=== PATIENT | female | born 1965 | race Caucasian/White ===

== ENCOUNTER 2021-09-04 13:05 | Outpatient (CLI) | payer BC, SELFPAY ==
--- NOTE | 2021-09-04 13:30 | MM_ITS ---
WS: [id number] BILATERAL 3D TOMOSYNTHESIS DIGITAL SCREENING MAMMOGRAPHY WITH CAD CLINICAL INFORMATION: SCREENING HISTORY: Screening mammogram. No current complaints. History of fibrocystic breasts. COMPARISON: None. TECHNIQUE: Bilateral CC and MLO views. FINDINGS: Scattered fibroglandular densities bilaterally. No suspicious focal mass, asymmetry, calcifications, or architectural distortion. No evidence of malignancy. MM/[place] [id number] IMPRESSION: BI-RADS: 1-Negative FOLLOW UP: 1 Year Follow-up Recommend return to annual screening mammography.
--- NOTE | 2021-09-04 13:32 | CT_ITS ---
WS: [id number] LDCT LUNG CANCER SCREENING TECHNIQUE: Noncontrast CT of the chest with coronal and sagittal reformatted images. CLINICAL INFORMATION: CIGARETTE NICOTINE DEPENDENCE W/O COMPLICATION COMPARISON: None. DLP: 62.91 mGy.cm DIvol: Mean CTDIvol: 1.60 (mGy) All CT scans at [facility] use at least one of these dose optimization techniques: automat ed exposure control; mA and/or kV adjustment per patient size (includes targeted exams where dose is matched to clinical indication); or iterative reconstruction. FINDINGS: Both lungs are well aerated. Mild thoracic curve. Mild thoracic kyphosis. No suspicious pul monary parenchymal opacities. No focal pneumonia or pleural fluid. Normal caliber thoracic aorta. No mediastinal or hilar lymphadenopathy. No axillary lymphadenopathy. Small esophageal hiatal hernia. Adrenal glands are normal. CT/CT lung screening [id number] IMPRESSION: LUNG-RADS: 1-Negative FOLLOW UP: 12 Month: Continue annual screening with LDCT
== END 2021-09-04 13:06 | disposition home or self-care (01) ==
PROVIDERS: PCP Nurse Practitioner Family; Visit Provider Nurse Practitioner Family
DX: F17.210 Nicotine dependence, cigarettes, uncomplicated (principal); Z12.31 Encounter for screening mammogram for malignant neoplasm of breast
CPT/HCPCS: 71271; 77063; 77067

== ENCOUNTER → 2022-11-18 10:35 | Outpatient (BNVA) | payer BC, SELFPAY | PROVIDERS: Visit Provider Family Medicine | DX: Z12.11 Encounter for screening for malignant neoplasm of colon (principal); Z12.12 Encounter for screening for malignant neoplasm of rectum; M35.00 Sjogren syndrome, unspecified; E66.9 Obesity, unspecified; F41.9 Anxiety disorder, unspecified; F90.9 Attention-deficit hyperactivity disorder, unspecified type; Z12.2 Encounter for screening for malignant neoplasm of respiratory organs; F17.200 Nicotine dependence, unspecified, uncomplicated; Z71.6 Tobacco abuse counseling | CPT/HCPCS: 80053; 80061; 83036; 84439; 84443; 85025 ==

== ENCOUNTER 2022-12-01 12:32 | Outpatient (CLI) | payer BC, SELFPAY ==
--- NOTE | 2022-12-01 13:30 | CT_ITS ---
WS: [id number] LDCT LUNG CANCER SCREENING TECHNIQUE: Noncontrast CT of the chest with coronal and sagittal reformatted images. CLINICAL INFORMATION: LDCT scan for screening COMPARISON: 09/04/2021 DLP: 80.51 mGy.cm DIvol: Mean CTDIvol: 1.70 (mGy) All CT scans at [facility] use at least one of these dose optimization techniques: automat ed exposure control; mA and/or kV adjustment per patient size (includes targeted exams where dose is matched to clinical indication); or iterative reconstruction. FINDINGS: Lungs are well aerated. No acute pulmonary infiltrates. No suspicious pulmonary parenchymal opacities. Normal caliber thoracic aorta. No mediastinal or hilar lymphadenopathy. No axillary lymphadenopathy. Adrenal glands are normal. Small esophageal hiatal hernia. Tiny nonobstructing LEFT renal parenchymal calculus. IMPRESSION: CT/CT lung screening [id number] LUNG-RADS: 1-Negative FOLLOW UP: 12 Month: Continue annual screening with LDCT
== END 2022-12-01 12:33 | disposition home or self-care (01) ==
PROVIDERS: PCP Family Medicine; Visit Provider Family Medicine
DX: Z12.2 Encounter for screening for malignant neoplasm of respiratory organs (principal); F17.219 Nicotine dependence, cigarettes, with unspecified nicotine-induced disorders
CPT/HCPCS: 71271

== ENCOUNTER 2022-12-19 08:45 | Day surgery (SDC) | payer BC, SELFPAY ==
[2022-12-19] MEDS: sodium chloride 0.9% 1,000 ML 30 ML IV (09:57)
[2022-12-19 09:59] VITALS: BP 117/71; PULSE 81; RESP 16; TEMP 35.8; O2SAT 93
--- NOTE | 2022-12-19 10:35 | P.ANESASSM_ITS ---
Pre-Anesthetic Assessment Height/Weight: Height 1.68 m Temp Pulse Resp BP Pulse Ox O2 Del Method 96.5 F L 81 16 117/71 93 Room Air 12/19/22 09:59 12/19/22 09:59 12/19/22 09:59 12/19/22 09:59 12/19/22 09:59 12/19/22 09:59 Preop Diagnosis: family history of colon polyps Operation Date: 12/19/22 10:45 Proposed Procedures p Colonoscopy 79678,Z12.11,Z80.0(Not Applicable) - Robby Hill DO Familial anesthetic complications: none Was Beta Guzman taken within 24 hours: N/A Was Clonidine taken within 24 hours: N/A Last intake: Intake Last Liquid Date 12/18/22 Last Liquid Time 22:00 Last Solid Date 12/17/22 Last Solid Time 19:00 Social Tobacco and No alcohol 0.5 pack(s) per day 40 pack years Exam alert, oriented x 3, clear to auscultation bilaterally and regular rate & rhythm Airway Submandibular: within normal limits Cervical ROM: within normal limits Mallampati: Class II Dentition: full Pulmonary None reported CV/HEM None reported None reported Hepatic None reported GI Gastroesophageal Reflux Disease Metabolic Hyperlipidemia [facility] [place] None reported Neuropsych Anxiety Anesthetic Plan ASA status: 2 Anesthesia: MAC Risk of > 500 ml blood loss (7ml/kg in children): No Medications/Allergies Home Medications Medication Instructions Recorded Confirmed Last Taken Type aripiprazole 10 mg tablet (Abilify) 10 mg PO DAILY #90 tabs 11/18/22 12/19/22 12/18/22 Rx clonazepam 1 mg tablet 1 mg PO DAILY #30 tabs 11/18/22 12/19/22 12/18/22 Rx dextroamphetamine-amphetamine ER 30 mg PO DAILY 30 days #30 caps 11/18/22 12/19/22 12/18/22 Rx 30 mg 24hr capsule,extend release (Adderall XR) venlafaxine 150 mg 150 mg PO DAILY #90 caps 11/18/22 12/19/22 12/18/22 Rx capsule,extended release 24 hr Allergies Allergy/AdvReac Type Severity Reaction Status Date / Time Sulfa (Sulfonamide Allergy Mild ALGY-Rash Verified 12/18/22 10:05 Antibiotics) Current Medications Generic Name Dose Route Start Last Admin Trade Name Freq PRN Reason Stop Dose Admin Sodium Chloride 1,000 mls @ 30 mls/hr 12/19/22 09:00 12/19/22 09:57 Sodium Chloride 0.9% IV 12/20/22 08:59 30 mls/hr .Q24H BERNARDA Administration PFSH Anesthesia Medical History (Updated 11/25/22 @ 10:02 by Robby Hill DO) ADHD Anxiety Family history of colon cancer Obesity (BMI 30.0-34.9) Sjogrens syndrome Tobacco use disorder Surgical History S/P hysterectomy Family History Father Brain aneurysm Mother CHF (congestive heart failure) Grandfather Myocardial infarction Cancer Maternal-colon Grandmother Heart aneurysm Family/Other Heart aneurysm Stroke Uncle: heart aneurysm Aunt: stroke Cancer Maternal uncle-lung Other Hyperlipidemia Thyroid disease Denies family history of Diabetes CAD (coronary artery disease) Clotting disorder Dementia Psychiatric illness Chronic kidney disease (CKD) Anesthesia complication Bleeding disorder Lung disease Hypertension Social History Smoking and tobacco/nicotine status: current every day tobacco/nicotine user (0.5 ppd X 30 years) cigarettes Packs smoked per day: 0.5 Years cigarettes smoked: 30 Alcohol intake: current Alcohol intake frequency: holidays/special occasions only Substance/Drug Use: never Lives independently: Yes Marital status: Number of children: 0 Current occupational status: employed Current occupation: [employer] Vivian/Religious: Hoahaoism Special vivian needs: No Agree to transfusion: Yes Data Anesthesia Cardiac Studies: No Data to Display
--- NOTE | 2022-12-19 11:19 | W.PM.OPSUD ---
Surgery/Procedure H&P Update DATE OF PROCEDURE: December 19, 2022 DATE H&P PERFORMED: 11/25/22 H&P UPDATE INFORMATION: I have reviewed H&P completed within last 30 days, I have examined patient prior to procedure and No changes to prior documentation PREOP DIAGNOSIS: family history of colon polyps PLANNED PROCEDURE: Operation Date: 12/19/22 10:45 Proposed Procedures p Colonoscopy 50801,Z12.11,Z80.0(Not Applicable) - Robby Hill,
[2022-12-19 11:57] VITALS: BP 103/62; PULSE 80; RESP 20; TEMP 36.3; O2SAT 95
--- NOTE | 2022-12-19 13:53 | ANE.PACU2 ---
Inpatient post-anesthesia follow up: Airway intact: Yes Vital signs: Temperature 97.3 F Pulse Rate 80 Respiratory Rate 20 Blood Pressure 103/62 Pulse Oximetry 95 Oxygen Delivery Me thod Nasal Cannula Oxygen Flow Rate 3 Fraction of Inspir ed Oxygen Hydration adequate: Yes Nausea and vomiting: No Pain level: 2 Mental status: Baseline
== END 2022-12-19 12:15 | disposition home or self-care (01) ==
PROVIDERS: PCP Family Medicine; Visit Provider Surgery
PROC: 0DJD8ZZ Inspection of Lower Intestinal Tract, Via Natural or Artificial Opening Endoscopic (ICD-10-PCS; CPT 45378; principal; 2022-12-19 10:45)
DX: Z12.11 Encounter for screening for malignant neoplasm of colon (principal); Z80.0 Family history of malignant neoplasm of digestive organs; D12.3 Benign neoplasm of transverse colon; F17.210 Nicotine dependence, cigarettes, uncomplicated
CPT/HCPCS: 45385; 88305; J2704; J7030

== ENCOUNTER 2024-07-29 12:56 | Outpatient (CLI) | payer BC, SELFPAY ==
--- NOTE | 2024-07-29 13:45 | CT_ITS ---
WS: [id number] LDCT LUNG CANCER SCREENING TECHNIQUE: Noncontrast CT of the chest with coronal and sagittal reformatted images. CLINICAL INFORMATION: screening COMPARISON: 2022 DLP: 71.59 mGy.cm DIvol: Mean CTDIvol: 1.50 (mGy) All CT scans at [facility] use at least one of these dose optimization techniques: automated exposure control; mA and/or kV adjustment per patient size (includes targeted exams where dose is matched to clinical indication); or iterative reconstruction. FINDINGS: No suspicious pulmonary parenchymal abnormalities. Normal caliber thoracic aorta. No mediastinal or hilar lymphadenopathy. No axillary lymphadenopathy. Adrenal glands are normal. Small esophageal hiatal hernia. Mild thoracic curve. Mild thoracic kyphosis. CT/CT lung screening [id number] IMPRESSION: LUNG-RADS: 1-Negative FOLLOW UP: 12 Month: Continue annual screening with LDCT
== END 2024-07-29 12:57 | disposition home or self-care (01) ==
PROVIDERS: PCP Family Medicine; Visit Provider Family Medicine
DX: Z12.2 Encounter for screening for malignant neoplasm of respiratory organs (principal); F17.219 Nicotine dependence, cigarettes, with unspecified nicotine-induced disorders; Z13.6 Encounter for screening for cardiovascular disorders; K44.9 Diaphragmatic hernia without obstruction or gangrene; M43.8X4 Other specified deforming dorsopathies, thoracic region; M40.294 Other kyphosis, thoracic region
CPT/HCPCS: 71271; 80053; 80061; 85025